=== PATIENT | female | born 1970 | race Caucasian/White ===

== ENCOUNTER 2019-12-22 15:06 | Outpatient (CLI) | payer OTHER, BC, SELFPAY ==
[2019-12-22 15:35] LABS: Basophils Percent Auto 0.4 % (0.2-1.2); Eosinophils Absolute Auto 0.2 K/mm3 (0-0.3); Eosinophils Percent Auto 1.8 % (0-4.4); Hemoglobin 12.7 g/dL (12.0-15.0); Immature Granulocyte Absolute 0.03 K/mm3 (0.00-0.031); Immature Granulocyte Percent A 0.3 % (0-0.5); Lymphocytes Absolute Auto 1.95 K/mm3 (0.9-3.2); Lymphocytes Percent Auto 20.7 % (18.3-44.2); Mean Corpuscular HGB Conc 32.6 g/dl (32-36); Mean Corpuscular Hemoglobin 30.2 pg (26-34); Mean Corpuscular Volume 92.9 fl (80-100); Mean Platelet Volume 8.9 fl (7.4-10.4); Monocytes Absolute Auto 0.7 K/mm3 (0.1-0.6); Monocytes Percent Auto 7.2 % (2.6-8.5); Neutrophils Absolute Auto 6.5 K/mm3 (1.3-6.7); Neutrophils Percent Auto 69.6 % (45.5-73.1); Platelet Count Result 493 k/mm3 (150-375); Red Cell Distribution Width 13.2 % (11.5-14.5); White Blood Count 9.4 K/mm3 (4.5-10.0)
[2019-12-22 15:47] LABS: Alanine Aminotransferase 20 U/L (4-35); Albumin Level 4.3 g/dL (3.5-5.1); Alkaline Phosphatase 113 U/L (38-126); Aspartate Amino Transferase 28 U/L (14-36); Bilirubin,Total 0.3 mg/dL (0.2-1.3); Blood Urea Nitrogen 24 mg/dL (7-17); Calcium 9.2 mg/dL (8.4-10.2); Carbon Dioxide 24 mmol/L (22-30); Chloride 107 mmol/L (98-107); Estimated Glomerular Filt Rate > 60; Glucose 95 mg/dL (65-105); Potassium 4.1 mmol/L (3.4-5.0); Sodium 141 mmol/L (137-145)
[2019-12-22 16:25] LABS: Erythrocyte Sedimentation Rate 22 mm/hr (0-20)
[2019-12-24 21:30] LABS: CRP, High Sensitivity 8.7 mg/L (***)
== END 2019-12-22 15:07 | disposition home or self-care (01) ==
PROVIDERS: PCP Family Medicine; Visit Provider Family Medicine
DX: R59.1 Generalized enlarged lymph nodes (principal); I10 Essential (primary) hypertension
CPT/HCPCS: 36415; 80053; 85025; 85652; 86141

== ENCOUNTER 2021-04-23 15:43 | Emergency (ER) | payer OTHER, SELFPAY ==
[2021-04-23 15:56] VITALS: BP 137/89; PULSE 60; RESP 16; TEMP 36.3; O2SAT 100
--- NOTE | 2021-04-23 16:09 | ED.FEMALEGU ---
HPI - Female Genitourinary General Chief complaint: Urogenital-Female Stated complaint: UTI Time Seen by Provider: 04/23/21 16:09 Source: patient and RN notes reviewed Mode of arrival: ambulatory Limitations: no limitations History of Present Illness HPI Narrative: 50-year-old female presents with concern for urine frequency, lower abdominal pressure, back discomfort. Reports symptoms have been present for couple of weeks. Reports they have been getting worse. She denies nausea, vomiting, diarrhea, abdominal pain, fever. Reports she took cranberry pills several times, the last one was yesterday. MD elicited complaint: UTI Related Data Home Medications Medication Instructions Recorded Confirmed atenolol 25 mg PO DAILY 04/23/21 04/23/21 venlafaxine 75 mg PO DAILY 04/23/21 04/23/21 Allergies Allergy/AdvReac Type Severity Reaction Status Date / Time lisinopril Allergy Unknown Unknown Verified 04/23/21 15:48 Review of Systems Review of Systems: CONSTITUTIONAL: Denies malaise, chills, sweats, or fever. CARDIOVASCULAR: Denies chest pain, palpitations, or edema. RESPIRATORY: Denies cough or dyspnea. GASTROINTESTINAL: Denies abdominal pain, nausea, vomiting, diarrhea. Reports suprapubic pressure GENITOURINARY: Denies dysuria or hematuria. Reports urine frequency MUSCULOSKELETAL: Denies myalgia. All systems reviewed & are unremarkable except as noted in HPI and below PMFSH Past Medical History Medical History (Updated 04/23/21 @ 16:14 by Arline Bolton NP) Benign essential HTN CARINE (generalized anxiety disorder) Major depressive disorder, recurrent severe without psychotic features Family History Family History (Updated 12/04/16 @ 23:56 by DOCTOR UNKNOWN) Mother Hypertension Family history of elevated blood lipids Family history of diabetes mellitus in first degree relative Father Family history of malignant neoplasm of esophagus, Onset Age: 61 Patient's father is Social History Social History (Updated 12/22/19 @ 14:33 by Susu Najera) Smoking status: Never smoker Second hand tobacco smoke exposure: No Alcohol intake: current Substance use: never Substance use type: does not use Gender identity (if verbalized by the patient): Female Comments At time of signature, agree with nursing past medical, surgical, social and family history. There is no relevant family history pertinent to the presenting complaint Exam Narrative: GENERAL: Well-appearing, well-nourished, and in no acute distress. HEAD: Normocephalic. EYES: PERRLA, conjunctivae clear. NECK: Supple. No lymphadenopathy CHEST: Clear to auscultation. No respiratory distress. HEART: Regular rate and rhythm. ABDOMEN: Soft, nontender upon palpation, nondistended, normal active bowel sounds, no palpable or pulsatile masses, no guarding. No CVA tenderness SKIN: Warm, dry, no rash. NEURO: Alert and oriented x3. PSYCH: Normal mood and affect Course Course Emergency Course: Patient is aware of diagnosis, understands and agrees to treatment plan. Anticipatory guidance given. Patient agrees to follow-up as directed and is aware of reasons to seek care at the emergency department. Portions of this record may have been created with voice recognition software Vital Signs Vital signs: Vital Signs Temperature 97.3 F L 04/23/21 15:56 Pulse Rate 60 04/23/21 15:56 Respiratory Rate 16 04/23/21 15:56 Blood Pressure 137/89 04/23/21 15:56 Pulse Oximetry 100 04/23/21 15:56 Temperature 97.3 F L 04/23/21 15:56 Pulse Rate 60 04/23/21 15:56 Respiratory Rate 16 04/23/21 15:56 Blood Pressure 137/89 04/23/21 15:56 Pulse Oximetry 100 04/23/21 15:56 Reviewed. Patient has had for hypertension MDM - Female Genitourinary MDM Narrative Medical decision making narrative: Exam findings and UA show no acute concerns or changes; patient is non-toxic appearing and is in no distress. Patient
== END 2021-04-23 16:17 | disposition home or self-care (01) ==
PROVIDERS: Emergency Provider Nurse Practitioner; PCP Family Medicine
DX: N39.0 Urinary tract infection, site not specified (principal); F41.1 Generalized anxiety disorder; F32.9 Major depressive disorder, single episode, unspecified; I10 Essential (primary) hypertension
CPT/HCPCS: 81003; 87077; 87086; 87088; 87186; 99213; G0463

== ENCOUNTER 2021-11-09 14:02 | Emergency (ER) | payer OTHER, SELFPAY ==
--- NOTE | ~2021-11-09 | CT_ITS ---
EXAMINATION: CT abdomen pelvis w con DATE: 11/09/2021 16:05 INDICATION: Right lower quadrant abdominal pain. Right flank pain. TECHNIQUE: Computed tomography (CT) of the abdomen and pelvis was performed with 100 mL Omnipaque-350 intravenous contrast. Automated exposure control and iterative reconstruction technique were employe d. The dose-length product was 918.03 mGy-cm. COMPARISON: 02/18/2010 FINDINGS: Mild dependent atelectasis in the bilateral lower lobes. Heart size is normal. Atherosclerotic town[place] ry artery calcification. No pericardial or pleural effusion. Postoperative change of prior Jacob-en-Y gastric bypass procedure with antecolic Jacob limb. Focal hepatic steatosis at the ligamentum teres. C onsultation at the dome of the liver consistent with old granulomatous disease. Cholecystectomy clips at the gallbladder fossa. Dropped clip along the posterior margin of the caudal tip of the liver as well as in the pelvis. Spleen, pancreas, bilateral adrenal glands and left kidney are normal. Small r egion of cortical scarring at the posterior right kidney likely sequela of prior infection or infarct ion. Bowels including the appendix are normal. Bladder, uterus and bilateral adnexa are unremarkable. No free intraperitoneal gas or fluid. No pathologically enlarged abdominal or pelvic lymphadenopathy . Mild lumbar levocurvature with mild lumbar and lower thoracic spondylosis. IMPRESSION: 1. Normal appendix. No acute intra-abdominal/pelvic process. Reviewed, dictated and finalized at location A.
[2021-11-09 14:06] VITALS: BP 129/73; PULSE 52; RESP 14; TEMP 36.6; O2SAT 100
--- NOTE | 2021-11-09 14:54 | ED.FEMALEGU ---
HPI - Female Genitourinary General Chief complaint: Urogenital-Female Stated complaint: blood in my urine Time Seen by Provider: 11/09/21 14:54 Source: patient Mode of arrival: ambulatory Limitations: no limitations History of Present Illness HPI Narrative: Patient is a 51-year-old female presenting to the emergency department for evaluation of right lower quadrant pain, right flank pain. Patient reportedly has had symptoms over the past week, has been treated for a possible urinary tract infection with Macrobid, finished a course of that medication but no improvement in symptoms. Denies fever or chills, cough, shortness of breath or chest pain. Reports dull, aching right lower quadrant abdominal pain with radiation to the right flank. Reports that she returned to the urgent care today and was told that she still had blood present in her urine. She reports urinary frequency without dysuria. No vaginal discharge. Patient states she feels as if she has urinary tract infection and was told to come to the emergency department to ensure she did not have a kidney stone. Patient denies history of kidney stone in the past. Denies diarrhea. Last oral intake 10 AM. Patient declines any pain medication or nausea medication at this time. Related Data Home Medications Medication Instructions Recorded Confirmed venlafaxine 75 mg PO DAILY 04/23/21 05/02/21 Allergies Allergy/AdvReac Type Severity Reaction Status Date / Time lisinopril Allergy Unknown Unknown Verified 11/09/21 14:03 Review of Systems Review of Systems: CONSTITUTIONAL: Denies fever, chills, or sweats. EYES: Denies visual changes, redness, or discharge. ENT: Denies rhinorrhea, congestion, sore throat, or otalgia. CARDIOVASCULAR: Denies chest pain, palpitations, or edema. RESPIRATORY: Denies cough or dyspnea. GASTROINTESTINAL: Reports right lower quadrant abdominal pain, nausea without vomiting GENITOURINARY: Denies dysuria or hematuria. SKIN: Denies rash or itching. MUSCULOSKELETAL: Denies back pain, joint pain, or myalgia. NEUROLOGIC: Denies headache, numbness, or weakness. [facility] Past Medical History Medical History Benign essential HTN Coronary artery disease CARINE (generalized anxiety disorder) History of [place] (myocardial infarction) Age 30, had stent Major depressive disorder, recurrent severe without psychotic features Obesity Surgical History Surgical History History of coronary artery stent placement History of gastric bypass History of laparoscopic cholecystectomy Family History Family History Mother Hypertension Family history of elevated blood lipids Family history of diabetes mellitus in first degree relative CHF (congestive heart failure) Heart disease Father Family history of malignant neoplasm of esophagus, Onset Age: 61 Patient's father is Social History Social History Social History: Smoking status: Never smoker Second hand tobacco smoke exposure: No Alcohol intake: current Alcohol use details: Occasionally Substance use: never Substance use type: does not use Gender identity (if verbalized by the patient): Female Sexual Orientation (if Verbalized by the Patient): Straight or Heterosexual Exam Narrative: GENERAL: Awake, alert, conversant HEAD: Normocephalic, atraumatic. EYES: PERRLA and EOMI. ENT: Nares clear, no rhinorrhea or epistaxis. Mucous membranes moist. NECK: Supple. CHEST: No respiratory distress, breathing even and non labored HEART: Regular rate, sinus rhythm ABDOMEN:Non distended, right lower quadrant abdominal pain without guarding, rebound or rigidity, positive left lower quad abdominal tenderness, positive right CVA tenderness EXTREMITIES: [place]
[2021-11-09 15:13] LABS: Add Urine Microscopic? NO; Appearance Urine Clear (Clear); Bilirubin Urine Negative (Negative); Blood Urine Negative (Negative); Color Urine Straw (Yellow); Glucose Urine UA Negative (Negative); Ketones Urine Negative (Negative); Leukocyte Esterase Ur Negative LEU/UL (Negative); Nitrate Urine Negative (Negative); Protein Urine Negative (Negative); Specific Grav Ur 1.008 (1.001-1.035); Urobilinogen Urine Negative mg/dL (<2.0)
[2021-11-09 15:21] LABS: Basophils Absolute Auto 0.1 K/mm3 (0.0-0.1); Basophils Percent Auto 1.3 % (0.2-1.2); Eosinophils Absolute Auto 0.5 K/mm3 (0-0.3); Eosinophils Percent Auto 5.2 % (0-4.4); Hemoglobin 11.8 g/dL (12.0-15.0); Immature Granulocyte Absolute 0.03 K/mm3 (0.00-0.031); Immature Granulocyte Percent A 0.3 % (0-0.5); Lymphocytes Absolute Auto 2.19 K/mm3 (0.9-3.2); Lymphocytes Percent Auto 25.5 % (18.3-44.2); Mean Corpuscular HGB Conc 32.8 g/dl (32-36); Mean Corpuscular Hemoglobin 31.1 pg (26-34); Mean Corpuscular Volume 94.7 fl (80-100); Mean Platelet Volume 8.7 fl (7.4-10.4); Monocytes Absolute Auto 0.9 K/mm3 (0.1-0.6); Monocytes Percent Auto 10.1 % (2.6-8.5); Neutrophils Percent Auto 57.6 % (45.5-73.1); Platelet Count Result 404 k/mm3 (150-375); Red Cell Distribution Width 12.8 % (11.5-14.5); White Blood Count 8.6 K/mm3 (4.5-10.0)
[2021-11-09 15:33] LABS: Alanine Aminotransferase 26 U/L (4-35); Albumin Level 4.3 g/dL (3.5-5.1); Alkaline Phosphatase 119 U/L (38-126); Anion Gap 7 mmol/L (8-16); Aspartate Amino Transferase 32 U/L (14-36); Bilirubin,Total 0.4 mg/dL (0.2-1.3); Blood Urea Nitrogen 25 mg/dL (7-17); Calcium 9.1 mg/dL (8.4-10.2); Carbon Dioxide 27 mmol/L (22-30); Chloride 102 mmol/L (98-107); Estimated CRCL calculation 60 ml/min; Estimated Glomerular Filt Rate 47; Glucose 95 mg/dL (65-110); Potassium 4.5 mmol/L (3.4-5.0); Sodium 136 mmol/L (137-145)
[2021-11-09 16:44] VITALS: BP 133/82; PULSE 78; RESP 18; O2SAT 98
[2021-11-09 17:10] VITALS: PULSE 78; RESP 18; O2SAT 98
== END 2021-11-09 17:10 | disposition home or self-care (01) ==
PROVIDERS: Emergency Provider Emergency Medicine; PCP Family Medicine
DX: R10.31 Right lower quadrant pain (principal); I10 Essential (primary) hypertension; I25.10 Atherosclerotic heart disease of native coronary artery without angina pectoris; I25.2 Old myocardial infarction; Z95.5 Presence of coronary angioplasty implant and graft; E66.9 Obesity, unspecified; Z68.34 Body mass index [BMI] 34.0-34.9, adult; Z98.84 Bariatric surgery status
CPT/HCPCS: 36415; 74177; 80053; 81003; 85025; 99284; Q9967

== ENCOUNTER 2022-01-13 09:57 | Emergency (ER) | payer OTHER, SELFPAY ==
[2022-01-13 10:07] VITALS: BP 101/61; PULSE 96; RESP 16; TEMP 36.1; O2SAT 98
--- NOTE | 2022-01-13 10:07 | ED.GENADULT ---
HPI - General Adult General Chief complaint: Nausea/Vomiting/Diarrhea Stated complaint: fernandez/diarrhea/dizziness/nausea Time Seen by Provider: 01/13/22 10:07 Source: patient and RN notes reviewed Mode of arrival: ambulatory Limitations: no limitations History of Present Illness HPI narrative: 51-year-old female presents to the [facility] with 3 days of nausea, diarrhea. Denies fever. Patient reports having lower abdominal cramping states it feels similar to a UTI. Tried calling primary care provider they told her they could not see her because she is having COVID symptoms. Reports family members had similar symptoms but they are better. Related Data Allergies Allergy/AdvReac Type Severity Reaction Status Date / Time lisinopril Allergy Unknown Unknown Verified 12/19/21 15:52 Review of Systems Review of Systems: All systems reviewed & are unremarkable except as noted in HPI and below Constitutional: Constitutional: Reports no additional constitutional complaints, Denies chills and Denies fever(s) Eyes: Eyes: Reports no additional eye complaints ENT: Reports system reviewed and no additional complaints, except as documented Cardiovascular: Cardiovascular: Reports no additional cardiovascular complaints Respiratory: Respiratory: Reports no additional respiratory complaints Gastrointestinal: Gastrointestinal: Reports as per HPI, Denies abdominal pain, Reports diarrhea, Reports nausea and Denies vomiting Musculoskeletal: Musculoskeletal: Reports no additional musculoskeletal complaints Integumentary/Breasts: Skin/Breast: Reports system reviewed and no additional complaints, except as docu Neurologic: Reports system reviewed and no additional complaints, except as documented Psychiatric: Psychiatric: Reports no additional psychiatric complaints Allergic/Immunologic: Allergic/Immunologic: Reports no additional allergic/immunologic complaints [facility] Past Medical History Medical History Benign essential HTN Coronary artery disease CARINE (generalized anxiety disorder) History of [place] (myocardial infarction) Age 30, had stent Major depressive disorder, recurrent severe without psychotic features Obesity Surgical History Surgical History History of coronary artery stent placement History of gastric bypass History of laparoscopic cholecystectomy Family History Family History Mother Hypertension Family history of elevated blood lipids Family history of diabetes mellitus in first degree relative CHF (congestive heart failure) Heart disease Father Family history of malignant neoplasm of esophagus, Onset Age: 61 Patient's father is Social History Social History Social History: Smoking status: Never smoker Second hand tobacco smoke exposure: No Alcohol intake: current Alcohol use details: Occasionally Substance use: never Substance use type: does not use Gender identity (if verbalized by the patient): Female Sexual Orientation (if Verbalized by the Patient): Straight or Heterosexual Comments At the time of my signature, I reviewed and agree with the nursing past medical, surgical, social, and family history. There is no relevant family history pertinent to the patient complaint. Exam Const: General: healthy appearing, no acute distress and alert Nutritional Appearance: well nourished Orientation/consciousness: patient oriented x3 Limitations: no limitations HENMT: Head: normal to inspection Ears: external ears normal Eyes: Pupils: Equal, round and reactive pupils present Neck: Neck: normal visual inspection, no lymphadenopathy and no meningeal signs Chest: Chest palpation & inspection: normal inspection of the chest Resp: Effort & Inspecti
--- NOTE | 2022-01-13 10:53 | PC.NURSE ---
Pt attempting to give urine sample. pt has drank 2 cups of water.
[2022-01-13 19:55] LABS: SARS-CoV-2 RNA PCR Negative
== END 2022-01-13 11:58 | disposition home or self-care (01) ==
PROVIDERS: Emergency Provider Nurse Practitioner; PCP Family Medicine
DX: K52.9 Noninfective gastroenteritis and colitis, unspecified (principal); Z20.822 Contact with and (suspected) exposure to COVID-19; I10 Essential (primary) hypertension; I25.10 Atherosclerotic heart disease of native coronary artery without angina pectoris; I25.2 Old myocardial infarction; E66.9 Obesity, unspecified; Z68.39 Body mass index [BMI] 39.0-39.9, adult; Z95.5 Presence of coronary angioplasty implant and graft; Z98.84 Bariatric surgery status; F33.9 Major depressive disorder, recurrent, unspecified
CPT/HCPCS: 81003; 87086; 87088; 99213; C9803; G0463; U0003; U0005

== ENCOUNTER 2022-12-21 16:31 | Outpatient (CLI) | payer OTHER, SELFPAY ==
--- NOTE | ~2022-12-21 | US_ITS ---
EXAMINATION: US renal BI DATE: 12/21/2022 16:55 INDICATION: N18.31 - Chronic kidney disease, stage 3a TECHNIQUE: Multiple grayscale and Doppler ultrasound images of the kidneys were obtained. COMPARISON: CT abdomen pelvis 11/09/2021 FINDINGS: The right kidney measures 9.0 x 4.3 x 4.2 cm. The left kidney measures 8.4 x 5.4 x 5.1 cm. The kidney s demonstrate normal parenchymal echogenicity. Bilateral increased renal parenchymal echogenicity. Bi lateral mild cortical thinning There is no hydronephrosis. The bladder is nondistended and therefore not well evaluated. IMPRESSION: Bilateral medical renal disease and cortical thinning. Reviewed, dictated and finalized at location K.
== END 2022-12-21 16:32 | disposition home or self-care (01) ==
PROVIDERS: PCP Family Medicine; Visit Provider Internal Medicine Nephrology
DX: N18.31 Chronic kidney disease, stage 3a (principal)
CPT/HCPCS: 76775

== ENCOUNTER 2023-01-22 14:25 | Outpatient (CLI) | payer OTHER, SELFPAY ==
--- NOTE | ~2023-01-22 | CT_ITS ---
Non-contrast CT scan of the Abdomen and Pelvis Clinical indication: UTI Technique: 2.5 mm axial scans were obtained through the abdomen and pelvis without intravenous or or al contrast. Dose reduction technique was used on this scan by utilizing automated exposure control a nd iterative reconstruction technique. The dose-length product (DLP) was 1020.55 mGy-cm. COMPARISON: 11/09/2021 Findings: Images through the lung bases reveal no abnormalities. There is no evidence of renal or ureteral calculi. The kidneys and the ureters are nondilated. The liver, spleen, pancreas, and adrenals appear normal. Cholecystectomy clips are present. There is no aortic aneurysm. There is no evidence of bowel obstruction. There is evidence of prior bariatric surgery. Images through the pelvis were performed. There is no evidence of ascites or lymphadenopathy. Urinary bladder unremarkable. No adnexal mass seen. Impression: No significant abnormality seen. Reviewed, dictated and finalized at [facility]. Impression: No significant abnormality seen.
== END 2023-01-22 14:26 | disposition home or self-care (01) ==
LOC: ANHIMG 14:29
PROVIDERS: PCP Family Medicine; Visit Provider Nurse Practitioner Gerontology
DX: N39.0 Urinary tract infection, site not specified (principal); R10.9 Unspecified abdominal pain
CPT/HCPCS: 74176

== ENCOUNTER 2023-03-24 09:05 | Outpatient (CLI) | payer OTHER, SELFPAY ==
--- NOTE | ~2023-03-24 | MM_ITS ---
EXAMINATION: MM screening nikhil BI w angel HISTORY: Baseline screening mammogram TECHNIQUE: Craniocaudal and mediolateral oblique 3-D tomosynthesis images were obtained and synthetic 2-D images were generated. CAD analysis was submitted and interpreted. COMPARISON: None, baseline BREAST PARENCHYMAL COMPOSITION: There are scattered areas of fibroglandular density. FINDINGS: RIGHT BREAST: No suspicious mass, calcification, or architectural distortion are identified to sugges t malignancy. LEFT BREAST: There is possible architectural distortion in the middle third of inner breast approxima tely 5 cm from the nipple. IMPRESSION: 1. Possible left breast architectural distortion. 2. Additional mammographic views and possible breast ultrasound are recommended. BI-RADS Category 0: Incomplete: Needs additional imaging evaluation. Reviewed, dictated and finalized at location A. IMPRESSION: 1. Possible left breast architectural distortion. 2. Additional mammographic views and possible breast ultrasound are recommended . BI-RADS Category 0: Incomplete: Needs additional imaging evaluation.
== END 2023-03-24 09:06 | disposition home or self-care (01) ==
PROVIDERS: PCP Family Medicine; Visit Provider Nurse Practitioner Gerontology
DX: Z12.31 Encounter for screening mammogram for malignant neoplasm of breast (principal); R92.8 Other abnormal and inconclusive findings on diagnostic imaging of breast
CPT/HCPCS: 77063; 77067

== ENCOUNTER 2023-04-19 14:09 | Outpatient (CLI) | payer OTHER, SELFPAY ==
--- NOTE | ~2023-04-19 | MMUS_ITS ---
EXAMINATION: MM diagnostic nikhil LT w angel, US breast LT limited HISTORY: Possible architectural distortion in middle third of inner breast approximately 5 cm from ni pple reported on 03/24/2023 screening mammogram TECHNIQUE: Additional 3-D tomosynthesis images of the left breast were performed and synthetic 2-D im ages were generated. CAD analysis was submitted and interpreted. High resolution upper inner and lowe r inner quadrant left breast ultrasound was performed. COMPARISON: 03/24/2023 bilateral screening mammogram FINDINGS: MAMMOGRAPHIC FINDINGS: No suspicious mass or architectural distortion is detected. No malignant calcification, skin thickeni ng or retraction. ULTRASOUND: No suspicious mass or shadowing, cyst or other significant sonographic abnormality is identified in t he upper inner or lower inner quadrants. IMPRESSION: 1. No mammographic evidence of malignancy 2. Routine annual mammographic screening is recommended BI-RADS Category 1: Negative Reviewed, dictated and finalized at location A. IMPRESSION: 1. No mammographic evidence of malignancy 2. Routine annual mammographic screening is recommended BI-RADS Category 1: Negative
== END 2023-04-19 14:10 ==
LOC: MICIMG 14:11
PROVIDERS: PCP Family Medicine; Visit Provider Physician Assistant
DX: R92.8 Other abnormal and inconclusive findings on diagnostic imaging of breast (principal)
CPT/HCPCS: 76642; 77061; 77065; G0279

== ENCOUNTER 2024-07-11 02:53 | Day surgery (SDC) | payer OTHER, SELFPAY ==
[2024-06-28 15:51] VITALS: BMI 34.7
[2024-07-11 09:08] VITALS: BP 104/73; PULSE 81; RESP 16; TEMP 36.2; O2SAT 100
[2024-07-11] MEDS: LACTATED RINGERS 1,000 ML 150 ML IV CONT (09:08)
--- NOTE | 2024-07-11 09:47 | WPDANESEPPF ---
Anes - Initial Pre Proc Eval Procedure: Operation Date: 07/11/24 10:30 Proposed Procedures p Screening Colonoscopy - Diego Robison MD Date/Time: 07/11/24 09:47 Surgeon: Diego Robison MD Pre Op Diagnosis: neoplasm screening Patient Data Age: 53 Gender: F Height: 1.6 m Weight: 82.7 kg Last Vital Signs Temp 97.1 F L 07/11/24 09:08 Pulse 81 07/11/24 09:08 Resp 16 07/11/24 09:08 BP 104/73 07/11/24 09:08 Pulse Ox 100 07/11/24 09:08 O2 Del Method Room Air 07/11/24 09:08 Allergies Allergy/AdvReac Type Severity Reaction Status Date / Time lisinopril Allergy Unknown Unknown Verified 07/11/24 08:59 Home Medications Medication Instructions Recorded Confirmed Type venlafaxine 150 mg See Rx Instructions .Route 01/10/24 07/11/24 Rx capsule,extended release 24 hr .COMPLEX #90 caps losartan 50 mg tablet See Rx Instructions .Route 02/07/24 07/11/24 Rx .COMPLEX #90 tabs trazodone 50 mg tablet See Rx Instructions .Route 05/02/24 07/11/24 Rx .COMPLEX #90 tabs rosuvastatin 5 mg tablet 5 mg PO DAILY #90 tabs 05/13/24 07/11/24 Rx buspirone 10 mg tablet See Rx Instructions .Route 05/15/24 07/11/24 Rx .COMPLEX #180 tabs atenolol 25 mg tablet See Rx Instructions .Route 06/18/24 07/11/24 Rx .COMPLEX #90 tabs Zepbound 7.5 mg/0.5 mL 7.5 mg (0.5 mL) subcut WEEKLY #2 mL 06/19/24 07/11/24 Rx subcutaneous pen injector (tirzepatide (weight loss)) Patient hx anesthesia problems: none Family hx anesthesia problems: none Prior surgeries: gastric bypass lap band Results Review: All pre-operative results and documents have been reviewed as part of the pre-operative evaluation. [facility] Past Medical History Medical History Acute sinusitis Benign essential HTN Coronary artery disease Dysuria Flank pain Flea bite of multiple sites CARINE (generalized anxiety disorder) History of [place] (myocardial infarction) Age 30, had stent Major depressive disorder, recurrent severe without psychotic features Obesity Surgical History Surgical History History of coronary artery stent placement History of gastric bypass History of laparoscopic cholecystectomy Family History Family History Mother Hypertension Family history of elevated blood lipids Family history of diabetes mellitus in first degree relative CHF (congestive heart failure) Heart disease Father Family history of malignant neoplasm of esophagus, Onset Age: 61 Patient's father is Social History Social History Social History: Smoking status: Never smoker Second hand tobacco smoke exposure: No Alcohol intake: current Alcohol use details: per pt very seldom does she drink alcohol Substance use: never Substance use type: does not use Do You Feel Safe in your Home?: Yes Lack of Transportation: No Lack of Food: Never True Current Housing: I Have Housing Concerned About Future Housing: No Difficulty Paying Gas/Electric Bills: No Difficulty Paying for Meds: No Currently Unemployed: No Education: Trade/Vocational Certificate Living arrangements: with family Additional living arrangements comments: with Occupation/Education: occupation 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 Informed Consent: The patient's anesthetic plan and its attendant risks and benefits were discussed with the patient/family/POA. Questions were solicited and answers provided to the satisfaction of the patient/family/POA.
--- NOTE | 2024-07-11 10:03 | PM.HPGS ---
History of Present Illness History of Present Illness Consent: Risks, benefits, and alternatives have been discussed and questions answered. Patient agrees to proceed with procedure. Chief complaint: neoplasm screening Narrative: Rosario Henry is a 53 year old female here for first screening colonoscopy Review of Systems Review of Systems: All systems reviewed & are unremarkable except as noted in HPI and below PMFSH Past Medical History Medical History Acute sinusitis Benign essential HTN Coronary artery disease Dysuria Flank pain Flea bite of multiple sites CARINE (generalized anxiety disorder) History of AL (myocardial infarction) Age 30, had stent Major depressive disorder, recurrent severe without psychotic features Obesity Surgical History Surgical History History of coronary artery stent placement History of gastric bypass History of laparoscopic cholecystectomy Family History Family History Mother Hypertension Family history of elevated blood lipids Family history of diabetes mellitus in first degree relative CHF (congestive heart failure) Heart disease Father Family history of malignant neoplasm of esophagus, Onset Age: 61 Patient's father is Social History Social History Social History: Smoking status: Never smoker Second hand tobacco smoke exposure: No Alcohol intake: current Alcohol use details: per pt very seldom does she drink alcohol Substance use: never Substance use type: does not use Do You Feel Safe in your Home?: Yes Lack of Transportation: No Lack of Food: Never True Current Housing: I Have Housing Concerned About Future Housing: No Difficulty Paying Gas/Electric Bills: No Difficulty Paying for Meds: No Currently Unemployed: No Education: Trade/Vocational Certificate Living arrangements: with family Additional living arrangements comments: with Occupation/Education: occupation 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 Gender identity (if verbalized by the patient): Female Sexual Orientation (if Verbalized by the Patient): Straight or Heterosexual Spiritual care concerns: No Meds Home Medications and Allergies Home Medications Medication Instructions Recorded Confirmed Type venlafaxine 150 mg See Rx Instructions .Route 01/10/24 07/11/24 Rx capsule,extended release 24 hr .COMPLEX #90 caps losartan 50 mg tablet See Rx Instructions .Route 02/07/24 07/11/24 Rx .COMPLEX #90 tabs trazodone 50 mg tablet See Rx Instructions .Route 05/02/24 07/11/24 Rx .COMPLEX #90 tabs rosuvastatin 5 mg tablet 5 mg PO DAILY #90 tabs 05/13/24 07/11/24 Rx buspirone 10 mg tablet See Rx Instructions .Route 05/15/24 07/11/24 Rx .COMPLEX #180 tabs atenolol 25 mg tablet See Rx Instructions .Route 06/18/24 07/11/24 Rx .COMPLEX #90 tabs Zepbound 7.5 mg/0.5 mL 7.5 mg (0.5 mL) subcut WEEKLY #2 mL 06/19/24 07/11/24 Rx subcutaneous pen injector (tirzepatide (weight loss)) Allergies Allergy/AdvReac Type Severity Reaction Status Date / Time lisinopril Allergy Unknown Unknown Verified 07/11/24 08:59 Vital Signs Vital Signs - 24 hr 07/11/24 09:08 Temperature 97.1 F L Pulse Rate 81 Respiratory Rate 16 Blood Pressure 104/73 Pulse Oximetry 100 Oxygen Delivery Room Air Exam Const: General: comfortable and no acute distress HENMT: Face/Nose/Sinus: Normal nares present Eyes: General: appearance normal, both eyes and all related structures Neck: Neck: no JVD Resp: Auscultation: clear to auscultation bilaterally Cardio: Rate: regular rate Rhythm: regular rhythm GI: Inspection: non-distended GI Palp: Yes Soft to palpation Skin: General skin exam: normal color Neuro: General: gait normal Speech: normal speech Extrem: General: normal to inspection Psych: Mental Status: mental status grossly normal Assessment and Plan Assessment and plan (1) Screening for colon cancer: Code(s): Z12.11 - Encounter for screening for malignant neoplasm of colon Status: Acute Assessment and Plan: colonoscopy
[2024-07-11 10:26] VITALS: BP 96/56; PULSE 58; RESP 16; O2SAT 100
[2024-07-11 10:36] VITALS: BP 101/65; PULSE 54; RESP 16; O2SAT 100
[2024-07-11 10:46] VITALS: BP 109/69; PULSE 56; RESP 15; O2SAT 100
== END 2024-07-11 10:52 | disposition home or self-care (01) ==
PROVIDERS: PCP Family Medicine; Referring Provider Physician Assistant; Visit Provider Internal Medicine Gastroenterology
PROC: 0DJD8ZZ Inspection of Lower Intestinal Tract, Via Natural or Artificial Opening Endoscopic (ICD-10-PCS; CPT 45378; principal; 2024-07-11 10:30)
DX: Z12.11 Encounter for screening for malignant neoplasm of colon (principal); K64.8 Other hemorrhoids; I10 Essential (primary) hypertension; I25.10 Atherosclerotic heart disease of native coronary artery without angina pectoris; I25.2 Old myocardial infarction; F41.1 Generalized anxiety disorder; F33.2 Major depressive disorder, recurrent severe without psychotic features; Z79.85 Long-term (current) use of injectable non-insulin antidiabetic drugs; Z98.84 Bariatric surgery status; Z95.5 Presence of coronary angioplasty implant and graft; E66.9 Obesity, unspecified; Z68.32 Body mass index [BMI] 32.0-32.9, adult
CPT/HCPCS: 45378; J2003; J2704; J7120

== ENCOUNTER 2025-07-11 17:01 | Outpatient (CLI) | payer OTHER, BC, SELFPAY ==
--- OUTSIDE RECORDS SUMMARY | 2025-07-11 17:04 | XMS_ITS | Clinical Summary ---
Author Organization [facility] Address [address] [place] [address] Care Team Providers Care Litigation Attorney Associate Name Role Phone Nii Chavira MD Unavailable Eva Leyva MD Primary Care Provider + Source Comments [facility],non-owned Affiliates and Associated Physician Practices is amultiple site organization consisting of ambulatory clinics and hospital sitesin [place], [place], [place] and [place]. This disclosure is being madepursuant to the Care Everywhere program and may not contain all information available regarding this patient. Last updated 18.[facility] Allergies Active Allergy Reactions Criticality Noted Date Comments Reglan Anxiety 09/27/2009 Medications * Be aware that medications may not be up to date on this document. Alwaysverify current medications with the patient. Atorvastatin Calcium (LIPITOR PO) Take by mouth once daily Active venlafaxine (EFFEXOR) 75 MG tablet Take 1 Tab by mouth 2 times daily with morning and evening meal 60 Tab 05/13/2017 Active atenolol (TENORMIN) 25 MG tablet Take 1 Tab by mouth once daily 90 Tab 3 05/13/2017 Active Active Problems Problem Noted Date Diagnosed Date Complication of gastric banding 09/18/2016 Blurred vision, bilateral 09/29/2009 Status post gastric banding 09/25/2009 Morbid obesity 08/28/2009 Heart attack 08/28/2009 Hypertension 08/28/2009 Sleep apnea 08/28/2009 Dyspnea on exertion 08/28/2009 Coronary artery disease 08/28/2009 High blood cholesterol 08/28/2009 Acid reflux 08/28/2009 Immunizations Immunization Administration Dates Next Due PNEUMOCOCCAL PPSV23 09/28/2009 Family History Medical History Relation Name Comments Cancer Father esophageal Cancer Other UNSPEC Diabetes Other UNSPEC Epilepsy Other UNSPEC Heart Disease Other UNSPEC Hypertension Other UNSPEC Stroke Other UNSPEC Relation Name Status Comments Father Other Social History Tobacco Use Types Packs/Day Years Used Date Smoking Tobacco: Never Smokeless Tobacco: Never Alcohol Use Standard Drinks/Week Comments Yes 0 (1 standard drink = 0.6 oz pur e alcohol) OCCASIONAL Comments No Sex and Gender Information Value Date Recorded Sex Assigned at Not on file 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 Gender Identity Not on file Sexual Orientation Not on file Last Filed Vital Signs Vital Sign Reading Time Taken Comments Blood Pressure 133/87 05/27/2018 10:14 AM CDT Pulse 92 05/27/2018 10:14 AM CDT Temperature 36.8 C (98.2 F) 05/13/2017 11:32 AM CDT Respiratory Rate 18 05/13/2017 11:32 AM CDT Oxygen Saturation 95% 05/13/2017 11:32 AM CDT Inhaled Oxygen Concentration - - Weight 88 kg (194 lb) 05/27/2018 10:14 AM CDT Height 160 cm (5' 3) 05/27/2018 10:14 AM CDT Body Mass Index 34.37 05/27/2018 10:14 AM CDT Plan of Treatment Health Maintenance Due Date Last Done Comments COLOGUARD (AGES 45-75) - COLON CA SCREENING 1970 COLON MONITORING 1970 COLONOSCOPY - COLON CA SCREENING 1970 CT COLONOGRAPHY - COLON CA SCREENING 1970 Colorectal Cancer Screening 1970 FIT - COLON CA SCREENING 1970 FLEX SIG - COLON CA SCREENING 1970 MAMMOGRAM 1970 HIV SCREENING 1985 HEPATITIS C SCREENING 10/08/1988 DTAP/TDAP/TD VACCINES (1 - Tdap) 1989 HEPATITIS B VACCINE (1 of 3 - 19+ 3-dose series) 1989 PNEUMOCOCCAL VACCINE 50+ (2 of 2 - PCV) 2020 09/28/2009 ZOSTER VACCINE (1 of 2) 2020 SCREENING FOR DIABETES 05/27/2021 8, 06/10/2017, 05/13/2017, Additional history exists DEPRESSION SCREENING 08/30/2024 COVID-19 VACCINE ( season) 2025 INFLUENZA VACCINE (#1) 2025 HIB VACCINE Aged Out No longer eligi ble based on patient's age to complete this topic HPV VACCINE Aged Out No longer eligi ble based on patient's age to complete this topic MENINGOCOCCAL (Group B) VACCINE SHARED DECISION-MAKING Aged Out No longer eligible based on patient's age to complete this topic MENINGOCOCCAL GROUPS A/C/Y/W VACCINE Aged Out No longer eligible based on patient's age to complete this topic Procedures Procedure Name Priority Date/Time Associated Diagnosis Comments COMPREHENSIVE METABOLIC PANEL Routine 05/27/2018 10:54 AM CDT Bariatric surgery status Morbid obesity BMI 34.0-34.9,adult Intestinal malabsorption, unspecified type Vitamin D deficiency Vitamin deficiency from Last 3 Months or Most Recently Relevant to Health Maintenance Results * (ABNORMAL) COMPREHENSIVE METABOLIC PANEL (05/27/2018 10:54 AM CDT) Glucose 87 74 - 106 mg/dL [facility] ACCOUNT BILL BUN 29(H) 7 - 21 mg/dL [facility] ACCOUNT BILL Creatinine 1.00 0.50 - 1.30 mg/dL [facility] ACCOUNT BILL eGFR by MDRD 59(L) >60 mL/min/1.7 3m2 [facility] ACCOUNT BILL eGFR by MDRD >60 >60 mL/min/1.7 3m2 [facility] ACCOUNT BILL Sodium 137 136 - 145 mmol/L [facility] ACCOUNT BILL Potassium 4.6 3.5 - 5.1 mmol/L [facility] ACCOUNT BILL Chloride 103 98 - 107 mmol/L [facility] ACCOUNT BILL CO2 26 22 - 31 mmol/L [facility] ACCOUNT BILL Calcium 9.7 8.5 - 10.1 mg/dL [facility] ACCOUNT BILL Protein Total 7.6 6.4 - 8.2 gm/dL [facility] ACCOUNT BILL Albumin 4.1 3.4 - 5.0 gm/dL [facility] ACCOUNT BILL Bilirubin Total 0.4 0.2 - 1.0 mg/dL [facility] ACCOUNT BILL Alkaline Phosphatase 147(H) 38 - 126 U/L [facility] ACCOUNT BILL AST 48(H) 5 - 40 U/L [facility] ACCOUNT BILL ALT 64(H) 13 - 61 U/L [facility] ACCOUNT BILL Comment:FASTING Blood BLOOD SPECIMEN / Unknown 05/27/2018 10:54 AM CDT 05/27/2018 Narrative Resulting Agency Comment [facility] [address] [place] [id number] us Michelle Blackman UNDERWRITING SUPPORT SPECIALIST-[employer] [facility] - CHEMISTRY ORDE SHABBIR Final Result [facility] ACCOUNT BILL [address] [place] [address] from Last 3 Months or Most Recently Relevant to Health Maintenance Insurance [facility] Advance Directives * Full Code (Latest Code Status on File) Date Activated Date Inactivated Comments 05/11/2017 6:12 PM 05/13/2017 4:50 PM * Full Code Date Activated Date Inactivated Comments 09/27/2009 2:28 PM 10/02/2009 12:44 AM Care Teams Litigation Attorney Associate Relationship Specialty Start Date End Date Eva Leyva MD [address] [address] [address] [place] [address] PCP - General Family Medicine 05/21/16 [place] [id number] [address] [place] [address] Cardiovascular Disease 06/23/12
--- OUTSIDE RECORDS SUMMARY | 2025-07-11 17:04 | XMS_ITS | Clinical Summary ---
Author Organization [facility] Care Team Providers Care Venetian Blind Machine Operator Name Role Phone Unavailable Primary Care Provider Unavailabl e Social History Tobacco Use Types Packs/Day Years Used Date Smoking Tobacco: Never Assessed Comments Unknown Sex and Gender Information Value Date Recorded Sex Assigned at Not on file Legal Sex Female 3:48 PM CDT Gender Identity Not on file Sexual Orientation Not on file Plan of Treatment Health Maintenance Due Date Last Done Comments Hepatitis C Virus (HCV) Screening 1970 TdaP Immunization 1970 Hepatitis B Immunization (1 of 3 - 19+ 3-dose series) 1989 Pap Smear 1991 Cervical Cancer Screening (CCS) 2000 HPV/Cotest 2000 Cologuard 2015 Colonoscopy 2015 Colorectal Cancer Screening 2015 Immunochemical Fecal Occult Blood 2015 Pneumococcal Immunization (5 0+ years) (1 of 1 - PCV) 2020 Zoster Immunization (1 of 2) 2020 Influenza Immunization (#1) 2025 SARS-COV-2 Immunization ( season) 2025 Respiratory Syncytial Virus (RSV) Immunization (Adult) (1 - 1-dose 75+ series) 2045 Human Papillomavirus (HPV) Immunization Aged Out No longer eligible b ased on patient's age to complete this topic Meningococcal Immunization (ACWY) Aged Out No longer eligible based on patient's age to complete this topic Rotavirus Immunization Aged Out No lo nger eligible based on patient's age to complete this topic
== END 2025-07-11 17:02 | disposition home or self-care (01) ==
LOC: ANHLAB 17:03
PROVIDERS: PCP Family Medicine
DX: N39.0 Urinary tract infection, site not specified (principal)
CPT/HCPCS: 87086